=== PATIENT | female | born 1955 | race African-American/Black ===

== ENCOUNTER 2022-07-22 11:54 | Emergency (ER) | payer MEDICARE, MEDICAID ==
[~2022-07-22] VITALS: Ht 167.6 cm; Wt 70.0 kg
[2022-07-22 11:56] VITALS: BP 115/83
== END 2022-07-22 14:22 | disposition home or self-care (01) ==
LOC: ER 12:17
DX: S09.90XA Unspecified injury of head, initial encounter (principal); W18.39XA Other fall on same level, initial encounter; Y93.89 Activity, other specified; Y92.89 Other specified places as the place of occurrence of the external cause; Y99.8 Other external cause status; D64.9 Anemia, unspecified; F03.90 Unspecified dementia, unspecified severity, without behavioral disturbance, psychotic disturbance, mood disturbance, and anxiety; F32.9 Major depressive disorder, single episode, unspecified; I10 Essential (primary) hypertension
CPT/HCPCS: 99284